=== PATIENT | male | born 1955 | race Caucasian/White ===

== ENCOUNTER → 2019-02-04 10:54 | Outpatient (BNVA) | payer MEDICARE, MEDICAID, SELFPAY | PROVIDERS: PCP Nurse Practitioner Family; Referring Provider Nurse Practitioner Family; Visit Provider Nurse Practitioner Gerontology | DX: N40.1 Benign prostatic hyperplasia with lower urinary tract symptoms (principal); R33.8 Other retention of urine; J44.9 Chronic obstructive pulmonary disease, unspecified; F17.210 Nicotine dependence, cigarettes, uncomplicated; I10 Essential (primary) hypertension | CPT/HCPCS: 51798; 81003; 99204 ==

== ENCOUNTER 2019-02-11 10:10 | Outpatient (CLI) | payer MEDICARE, MEDICAID, SELFPAY | END 2019-02-11 10:30 | PROVIDERS: PCP Nurse Practitioner Family; Visit Provider Urology | DX: Z01.818 Encounter for other preprocedural examination (principal) ==

== ENCOUNTER 2019-02-16 10:20 | Observation (INO) | payer MEDICARE, MEDICAID, SELFPAY ==
[2019-02-11 10:31] VITALS: BP 120/73; PULSE 73; RESP 20; TEMP 37.2; O2SAT 94
[2019-02-16] VITALS (14 sets, daily range): BP systolic 127–200; BP diastolic 53–93; PULSE 60–73; RESP 1–28; TEMP 36–36.7; O2SAT 93–100
[2019-02-16] MEDS: Lactated Ringers 1,000 ML 80 ML IV (11:57)
--- NOTE | 2019-02-16 11:57 | W.PM.HP.N ---
Date of service: 02/16/19 Time of Service: 11:57 Assessment and Plan (1) Lower urinary tract symptoms (LUTS): Current visit: Yes Status: Acute Since he has failed maximal medical therapy, it is reasonable to move ahead with transurethral resection of the prostate. We will expect him to stay overnight for bladder irrigation and be discharged tomorrow with a catheter in place. History of Present Illness Chief Complaint: Lower urinary tract symptoms Narrative: This is a 63-year-old gentleman who was previously under the care of another urologist. This gentleman has been followed for lower urinary tract symptoms. He is on maximum doses of alpha blockers and 5 alpha reductase inhibitors. His symptoms have progressed in spite of the maximal medical therapy. He had discussed transurethral resection with his previous urologist. The patient is interested in moving ahead with the surgery, but the urologist is no longer practicing locally. He presents for transurethral resection of the prostate. He has not gone into retention he has no history of recurrent urinary tract infections. He is on Xarelto chronically, but his anticoagulant was discontinued 3 days ago Review of Systems Constitutional Comments: No fevers or chills No vision change or dysphasia No diabetes or thyroid No shortness of breath, cough or hemoptysis. heavy smoker. No chest pain or palpitations. His last pacemaker check was in january 2019. No nausea, vomiting, hepatitis, ulcers, jaundice, diarrhea or constipation No seizures, strokes or peripheral neuropathy Bruises easily with Xaralto. No anemia No gout. Hx arthralgia and chronic back pain PFSH Medical History Atrial fibrillation (Chronic) BPH (benign prostatic hyperplasia) (Chronic) COPD (chronic obstructive pulmonary disease) (Chronic) Cataract (Chronic) Coronary artery disease (Chronic) GERD (gastroesophageal reflux disease) (Chronic) Hypertension (Chronic) Pacemaker (Chronic) Surgical History H/O shoulder surgery (Chronic) History of cataract surgery (Chronic) History of hernia repair (Chronic) Social History Smoking/Tobacco Use Status: Current every day Drug use: Never Meds Home Medications Medication Instructions Recorded Confirmed Type albuterol sulfate HFA 90 2 puff IH Q6H PRN 02/04/19 02/16/19 History mcg/actuation aerosol inhaler aspirin 325 mg tablet 325 mg PO DAILY 02/04/19 02/16/19 History atorvastatin 80 mg tablet 80 mg PO DAILY 02/04/19 02/16/19 History bupropion HCl XL 150 mg 24 hr 150 mg PO QAM 02/04/19 02/16/19 History tablet, extended release esomeprazole magnesium 40 mg 40 mg PO DAILY cap 02/04/19 02/16/19 History capsule,delayed release ipratropium-albuterol 0.5 mg-3 3 ml IH Q8H 02/04/19 02/16/19 History mg(2.5 mg base)/3 mL nebulization soln metoprolol succinate ER 25 mg 25 mg PO DAILY 02/04/19 02/16/19 History capsule sprinkle, ext. release 24 hr nitroglycerin 0.4 mg sublingual 0.4 mg SL Q5-15M PRN 02/04/19 02/16/19 History tablet pregabalin 100 mg capsule 100 mg PO DAILY cap 02/04/19 02/16/19 History rivaroxaban 20 mg tablet 20 mg PO DAILY 02/04/19 02/16/19 History sucralfate 1 gram tablet 1 gm PO QACHS 02/04/19 02/16/19 History tamsulosin 0.4 mg capsule 0.8 mg PO DAILY cap 02/04/19 02/16/19 History umeclidinium 62.5 mcg-vilanterol 1 inh IH Q24H 02/04/19 02/16/19 History 25 mcg/actuation powdr for inhalation cyclobenzaprine 10 mg PO BID 02/11/19 02/16/19 History finasteride 5 mg PO DAILY 02/11/19 02/16/19 History Allergies Allergy/AdvReac Type Severity Reaction Status Date / Time naproxen Allergy Intermediate Skin Rash Verified 02/16/19 11:30 nicotine Allergy Intermediate Skin Rash Verified 02/16/19 11:30 tetracycline Allergy Verified 02/16/19 11:30 omeprazole [From Prilosec] AdvReac Intermediate vomiting Verified 02/16/19 11:30 Exam Narrative Exam Narrative: He is in no current distress. He is cooperative. His vital signs are documented elsewhere in the chart. His neck is supple. His chest wall motion is normal. His lungs are clear. Cardiac exam shows a regular rate and rhythm. His abdomen is soft with no guarding or rebound tenderness. The kidneys liver and spleen are not enlarged Urologic exam was performed in the office and is documented elsewhere in EMR. There is no edema in the lower extremities. No amputations or deformities are found. He is awake, alert and oriented. Results Last Vital Signs Temp 36.7 C 02/16/19 11:31 Pulse 73 02/16/19 11:31 Resp 20 02/16/19 11:31 BP 131/69 02/16/19 11:31 Pulse Ox 94 L 02/16/19 11:31
--- NOTE | 2019-02-16 13:40 | PROST_PTH ---
PATIENT: Thien Cobos LOC: U#:[id number] AGE/SX: 63/M ROOM: [id number] RE02/16/[address]: Cloten Rice MD : 1955 BED: A DIS: 02/17/2019 SPEC #: [id number] RECD: 02/16/19 15:45 STATUS: SOUT REQ #: [id number] MENA: 02/16/19 13:[address]: Colten Rice DEPT: Surgical Specimen RECD BY: Toyin Travis ENTERED: 02/16/19 15:47 SP TYPE: PROST OTHR DR: Pati Ramirez Tissues: 1 - PROSTATE CURRETTINGS Procedures: GROSS AND MICRO LEVEL 4 Comments: [id number]
[2019-02-16] MEDS: Lidocaine 2% Jelly 6 ML SYR (13:50)
[2019-02-16] MEDS: Ketorolac 15 MG/ML VIAL IVP (14:30)
[2019-02-16] MEDS: fentaNYL 100 MCG/2 ML VIAL IVP ×2 (14:31→14:42)
--- NOTE | 2019-02-16 14:52 | ROE_ITS ---
DATE OF PROCEDURE: February 16, 2019 PREOPERATIVE DIAGNOSIS: Lower urinary tract symptoms. POSTOPERATIVE DIAGNOSIS: Same with pathology pending. PROCEDURE: Cystoscopy; transurethral resection of prostate. SURGEON: Colten Rice M.D. ANESTHESIA: General. COMPLICATIONS: None. ESTIMATED BLOOD LOSS: Less than 100 cc's HISTORY: This is a 63-year-old gentleman who has a long history of lower urinary tract symptoms. He has been treated with maximal medical therapy, but his symptoms progressed. He has not gone into re tention. He has no history of recurrent urinary tract infections. He presents now for transurethral resection of the prostate. OPERATIVE REPORT: The patient was brought to the Operating Room on 02/16/19. After successful induct ion of general anesthesia, he was placed in the dorsal lithotomy position. His genitalia was prepped and draped. 2% Xylocaine jelly was instilled into the urethra to act as a local anesthetic. A 24 Algerian resectoscope sheath was passed through the urethra into the bladder. We used the visual obturator to inspect both the urethra and the prostate. The pendulous and bulbous urethras appeared normal. There was a mild narrowing in the membranous ure thra, but this was easily dilated with the scope. The prostatic urethra showed a relatively short urethra, but there appeared to be nodular enlargement , especially at the bladder neck. This was more prominent on the left side of the prostate compared to the right. The bladder itself showed numerous trabeculations and diverticula. No papillary or nodular tumors we re seen. We then switched to the bipolar resectoscope and performed transurethral resection from the bladder n mariano out to the verumontanum. The depth of the resection was down to the prostatic capsule. All evac uated tissue was sent to Pathology for permanent section. Toward the end of the resection we switched over to the plasma button and vaporized the prostate tiss ue back to the capsule. This allowed for adequate hemostasis. The bladder was then filled with irrigant. The resectoscope was removed. A 24 Algerian Mullen catheter was then passed through the urethra into the bladder. The catheter balloon was inflated with 30 cc' s of sterile water. The catheter was hooked to gravity drainage. Continuous bladder irrigation was begun. Traction was placed on the catheter until the irrigant became clear. The patient tolerated this procedure well with no complications.
[2019-02-16] MEDS: HYDROmorphone 2 MG/ML VIAL IVP ×2 (15:03→15:21)
[2019-02-16] MEDS: Normal Saline Flush 10 ML SYR IV (15:03)
[2019-02-16] MEDS: Lactated Ringers 1,000 ML 75 ML IV (16:20)
[2019-02-16] MEDS: Sucralfate 1 GM TAB PO ×2 (16:20→20:15)
[2019-02-16] MEDS: Albuterol/Ipratropium 3 ML UPD VIAL IH ×2 (16:46→23:56)
--- NOTE | 2019-02-16 18:35 | NUR.NOTE ---
Nursing Note: Patients output into his hill bag, remains a straw color, his pain has been managed since arrival to the floor, He ate well at dinner, he received meatal care prior to dinner as well
[2019-02-16] MEDS: Cyclobenzaprine 10 MG TAB PO (20:15)
[2019-02-16] MEDS: Docusate Sodium 100 MG CAP PO (20:15)
[2019-02-17 00:16] VITALS: PULSE 63; RESP 22; O2SAT 96
[2019-02-17] MEDS: Lactated Ringers 1,000 ML 75 ML IV (04:24)
--- NOTE | 2019-02-17 07:02 | W.PM.PROGNOT ---
Date of Service Date of service: 02/17/19 Time of Service: 07:02 Assessment and Plan (1) Lower urinary tract symptoms (LUTS): Current visit: Yes Status: Acute He is recovering nicely from his procedure. We will discontinue his bladder irrigation and hooked his catheter up to a leg bag. He can be discharged to home and follow-up in about 5 days for catheter removal. We may have his surgical pathology back at that time as well. The patient may need some help in arranging transportation home. Subjective Interval history since last seen: He had a relatively comfortable night. He has no episodes of clot retention. He is tolerating oral intake with no nausea or vomiting. Exam Narrative Exam Narrative: He does not appear septic or toxic. His vital signs are documented elsewhere. His bladder irrigation is crystal clear. He is awake and alert. This morning's lab work is still pending. Objective Objective Clinical Data: Vital Signs Temperature 36.6 C 02/16/19 23:45 Temperature Source Skin 02/16/19 23:45 Pulse 63 02/17/19 00:16 Pulse Rhythm Irregular 02/16/19 23:45 Respiratory Rate 22 02/17/19 00:16 Respiratory Effort 02/16/19 23:45 Respiratory Depth Normal 02/16/19 23:45 Respiratory Pattern Normal 02/16/19 23:45 Blood Pressure 134/65 02/16/19 23:45 Pulse Oximetry 96 02/17/19 00:16 Oxygen Delivery Method Room Air 02/16/19 23:56 Oxygen Flow Rate 0 02/16/19 23:56 Pain Level 0 02/16/19 23:45 Intake & Output 02/16/19 02/16/19 02/17/19 11:59 23:59 11:59 Intake Total 1070 / 1070 1105 / 1105 Balance 1070 / 1070 1105 / 1105 Weight 75.7 kg Intake: IV 950 / 950 865 / 865 Oral 120 / 120 240 / 240 Other: Urine Color Pale Straw Urine Appearance Hematuria Comment patent and flowing with CBI, urine is straw colored Stool Size Small Stool Characteristics Soft Formed Brown Emesis Description None
--- NOTE | 2019-02-17 07:09 | DSE_ITS ---
Date of service: 02/17/19 Time of Service: 07:04 DS: Diagnosis Discharge Diagnosis (1) Lower urinary tract symptoms (LUTS): Status: Acute Discharge Plan Disposition Patient Disposition: HOME Condition: Stable Discharge Details Reason For Visit: BPH WITH LUTS Admit Date/Time: 02/16/19 10:20 Admit Provider: Colten Rice Attending Provider: Colten Rice Primary Care Provider: Pati Ramirez Hospital Course Hospital Course: The patient was brought to the hospital on 02/16/2019. He underwent a transurethral resection of the prostate. He tolerated the surgery well. We arranged for an overnight hospitalization for bladder irrigation to help prevent clots in the urine and urinary retention. By postoperative day #1, the irrigation remained clear. We discontinued the irrigation and left his catheter hooked to a drainage bag. He will be discharged with the catheter in place. He will follow-up in my office in about 5 days for catheter removal. At the time of his discharge, his surgical pathology is not yet available. Home Meds and New Rx's Prescriptions: No Action aspirin 325 mg tablet 325 mg PO DAILY RF: 0 atorvastatin 80 mg tablet 80 mg PO DAILY RF: 0 sucralfate [Carafate] 1 gram tablet 1 gm PO QACHS RF: 0 ipratropium-albuterol 0.5 mg-3 mg(2.5 mg base)/3 mL solution for nebulization 3 ml IH Q8H RF: 0 Lyrica 100 mg capsule 100 mg PO DAILY RF: 0 esomeprazole magnesium [Nexium] 40 mg capsule,delayed release(DR/EC) 40 mg PO DAILY RF: 0 nitroglycerin [Nitrostat] 0.4 mg tablet, sublingual 0.4 mg SL Q5-15M PRNRF: 0 albuterol sulfate [ProAir HFA] 90 mcg/actuation HFA aerosol inhaler 2 puff IH Q6H PRNRF: 0 tamsulosin 0.4 mg capsule 0.8 mg PO DAILY RF: 0 bupropion HCl [Wellbutrin XL] 150 mg tablet extended release 24 hr 150 mg PO QAM RF: 0 Xarelto 20 mg tablet 20 mg PO DAILY RF: 0 metoprolol succinate 25 mg cap,sprinkle,ER 24hr dose pack 25 mg PO DAILY RF: 0 Anoro Ellipta 62.5-25 mcg/actuation blister with device 1 inh IH Q24H RF: 0 cyclobenzaprine 10 mg Tablet 10 mg PO BID RF: 0 finasteride 5 mg Tablet 5 mg PO DAILY RF: 0 Discharge Instructions Additional Instructions: Instruct patient in use of leg bag for Hill catheter He may restart his aspirin but patient should hold his Xarelto until his follow- up visit He will need to follow-up in our office in about 5 days for catheter removal The patient may need assistance in arranging transportation home He may use [id number] Tylenol for discomfort. I will submit a prescription for antibiotics oral toradol to his local pharmacy. Activity:: no lifting over 10 pounds Equipment/Supplies:: hill catheter to leg bag - plug to irrigation port Diet:: As Tolerated Discharge Orders Discharge Orders: Discharge Order (Routine); Ordered 02/17/19 Ordered By: Colten Rice Exam Narrative Exam Narrative: At the time of discharge, the patient looks well. He does not appear septic or toxic His vital signs are documented elsewhere in the chart His lungs are clear with decreased breath sounds bilaterally Cardiac exam shows a regular rate His abdomen is soft. His bladder is not distended. His urine is clear in his catheter drainage bag He is awake and alert. DS: Data Vitals/I&O Vitals and I&O: Vital Signs Temperature 36.6 C 02/16/19 23:45 Temperature Source Skin 02/16/19 23:45 Pulse 63 02/17/19 00:16 Pulse Rhythm Irregular 02/16/19 23:45 Respiratory Rate 22 02/17/19 00:16 Respiratory Effort 02/16/19 23:45 Respiratory Depth Normal 02/16/19 23:45 Respiratory Pattern Normal 02/16/19 23:45 Blood Pressure 134/65 02/16/19 23:45 Pulse Oximetry 96 02/17/19 00:16 Oxygen Delivery Method Room Air 02/16/19 23:56 Oxygen Flow Rate 0 02/16/19 23:56 Pain Level 0 02/16/19 23:45 Intake & Output 02/16/19 02/16/19 02/17/19 11:59 23:59 11:59 Intake Total 1070 / 1070 1105 / 1105 Balance 1070 / 1070 1105 / 1105 Weight 75.7 kg Intake: IV 950 / 950 865 / 865 Oral 120 / 120 240 / 240 Other: Urine Color Pale Straw Urine Appearance Hematuria Comment patent and flowing with CBI, urine is straw colored Stool Size Small Stool Characteristics Soft Formed Brown Emesis Description None Labs on day of discharge: Labs from last 24 hours 02/17/19 02/17/19 05:35 05:35 Hgb Pending Hct Pending Sodium Pending Potassium Pending Chloride Pending Carbon Dioxide Pending Anion Gap Pending BUN Pending Creatinine Pending Estimated GFR/1.73 m2 Pending Glucose Pending Calcium Pending [facility] Medical History Atrial fibrillation (Chronic) BPH (benign prostatic hyperplasia) (Chronic) COPD (chronic obstructive pulmonary disease) (Chronic) Cataract (Chronic) Coronary artery disease (Chronic) GERD (gastroesophageal reflux disease) (Chronic) Hypertension (Chronic) Pacemaker (Chronic) Surgical History H/O shoulder surgery (Chronic) History of cataract surgery (Chronic) History of hernia repair (Chronic) Social History Smoking/Tobacco Use Status: Current every day Drug use: Never
[2019-02-17 07:37] VITALS: BP 115/53; PULSE 65; RESP 28; TEMP 37.2; O2SAT 93
[2019-02-17 07:53] LABS: HCT 41.3 % (40.0-50.0); HGB 13.9 g/dL (13.5-17.5)
[2019-02-17] MEDS: Esomeprazole 40 MG CAPCR PO (07:54)
[2019-02-17] MEDS: Cyclobenzaprine 10 MG TAB PO (07:54)
[2019-02-17] MEDS: buPROPion-XL 150 MG TABCR PO (07:54)
[2019-02-17] MEDS: Metoprolol CR 25 MG TABCR PO (07:54)
[2019-02-17] MEDS: Finasteride 5 MG TAB PO (07:55)
[2019-02-17] MEDS: Sucralfate 1 GM TAB PO (07:55)
[2019-02-17] MEDS: Docusate Sodium 100 MG CAP PO (07:55)
[2019-02-17] MEDS: Pregabalin 100 MG CAP PO (07:55)
[2019-02-17] MEDS: Atorvastatin 40 MG TAB 80 MG PO (07:55)
[2019-02-17] MEDS: Tamsulosin 0.4 MG CAPCR 0.8 MG PO (07:55)
[2019-02-17 08:04] LABS: BUN 11 mg/dL (7-18); CREATININE 0.98 mg/dL (0.70-1.30); Calcium 8.5 mg/dL (8.5-10.1); Chloride 105 mmol/L (98-107); Glucose 118 mg/dL (70-100); Potassium 3.9 mmol/L (3.5-5.1); Sodium 138 mmol/L (136-145)
[2019-02-17] MEDS: Acetaminophen 325 MG TAB 650 MG PO (09:22)
--- NOTE | 2019-02-17 09:36 | PDOC.CMIN ---
Care Management Initial Assess REASON FOR HOSPITALIZATION:: BPH with LUTS PAST MEDICAL HISTORY/PAST SURGICAL HISTORY:: LUTS, Urinary Retention, COPD, CAD, GERD, Hypertension, Pacemaker, BPH, Cataract removal, H/O shoulder surgery, hernia repair, AFIB PREVIOUS FUNCTIONAL STATUS/SOCIAL/FAMILY SUPPORTS:: Thien resides in [place] with his , Irma in [place], [place]. He is independent at baseline and enjoys watching wrestling on T.V. CURRENT FUNCTIONAL STATUS:: Thien was lying in bed when CM met with him. He was pleasant in interaction and shared no concerns at this time. Has patient been provided with information about the portal?: No Did the patient sign up for the portal?: No INSURANCE COVERAGE / FINANCIAL ISSUES:: Medicaid. Medicare CURRENT HOME/COMMUNITY SERVICES/EQUIPMENT:: [facility] PRIMARY CARE PHYSICIAN:: Pati Ramirez POTENTIAL DISCHARGE NEEDS:: Transportation, follow up appointments. PATIENT/FAMILY EDUCATION NEEDS:: Review of discharge instructions, discuss Ask Me Three. ANTICIPATED BARRIERS TO DISCHARGE:: None identified. TRANSPORTATION:: Via [facility], coordinated by this typewriter assembly and parts inspector. PLAN:: Thien will return home when ready per MD. He will follow up with Dr. Rice and his PCP as well as his plan of care as prescribed. He will transport via private vehicle with [facility] coordinated by this typewriter assembly and parts inspector. CM coordinated [facility] transport for 1100, confirmed transport and notified Jazmyne LAMBERT and Mary HUYNH.
[2019-02-17] MEDS: Albuterol/Ipratropium 3 ML UPD VIAL IH (10:16)
--- NOTE | 2019-02-17 11:07 | INITIAL_ITS ---
Care Management Initial Assess REASON FOR HOSPITALIZATION:: BPH with LUTS PAST MEDICAL HISTORY/PAST SURGICAL HISTORY:: LUTS, Urinary Retention, COPD, CAD, GERD, Hypertension, Pacemaker, BPH, Cataract removal, H/O shoulder surgery, hernia repair, AFIB PREVIOUS FUNCTIONAL STATUS/SOCIAL/FAMILY SUPPORTS:: Thien resides in [place] with his , Irma in [place], [place]. He is independent at baseline and enjoys watching wrestling on T.V. CURRENT FUNCTIONAL STATUS:: Thien was lying in bed when CM met with him. He was pleasant in interaction and shared no concerns at this time. Has patient been provided with information about the portal?: No Did the patient sign up for the portal?: No INSURANCE COVERAGE / FINANCIAL ISSUES:: Medicaid. Medicare CURRENT HOME/COMMUNITY SERVICES/EQUIPMENT:: [facility] PRIMARY CARE PHYSICIAN:: Pati Ramirez POTENTIAL DISCHARGE NEEDS:: Transportation, follow up appointments. PATIENT/FAMILY EDUCATION NEEDS:: Review of discharge instructions, discuss Ask Me Three. ANTICIPATED BARRIERS TO DISCHARGE:: None identified. TRANSPORTATION:: Via [facility], coordinated by this television writer. PLAN:: Thien will return home when ready per MD. He will follow up with Dr. Rice and his PCP as well as his plan of care as prescribed. He will transport via private vehicle with [facility] coordinated by this television writer. CM coordinated [facility] transport for 1100, confirmed transport and notified Jazmyne LAMBERT and Mary HUYNH.
--- NOTE | 2019-02-17 11:07 | PDOC.CMDIS ---
LACE Index Scoring Tool - Questions: Length of Stay (in days): 1 Acuity (Admit via E.D.?): No Comorbidities: Chronic Pulmonary Disease E.D. Visits: 0 - Answers: Total Score: 3 Risk of Readmission: Low Risk Care Management Discharge Reason for Hospitalization: BPH with LUTS Discharge Plan: Thien will return home when ready per MD. He will follow up with Dr. Rice for voiding trial 02/23/19, his PCP as well as his plan of care as prescribed. He will transport via private vehicle with [facility] coordinated by this scenario writer. CM coordinated [facility] transport for 1100, confirmed transport and notified Jazmyne HUYNHCC and Mary HUYNH. Patient/Family Education Needs: Review of discharge instructions, discuss Ask Me Three. Services Needed at Discharge: Transportation ([facility] Private Binder[employer] Machine Feeder Offbearer )
== END 2019-02-17 10:59 | disposition home or self-care (01) ==
LOC: PDS 14:19 → MS 15:12 → PDS 16:18
PROVIDERS: Admitting Provider Urology; PCP Nurse Practitioner Family; Visit Provider Urology
PROC: 0VT08ZZ Resection of Prostate, Via Natural or Artificial Opening Endoscopic (ICD-10-PCS; CPT 52601; principal; 2019-02-16 12:30)
DX: N40.0 Benign prostatic hyperplasia without lower urinary tract symptoms (principal); R33.8 Other retention of urine; N41.0 Acute prostatitis; N41.1 Chronic prostatitis; J44.9 Chronic obstructive pulmonary disease, unspecified; I10 Essential (primary) hypertension; Z95.0 Presence of cardiac pacemaker; F17.210 Nicotine dependence, cigarettes, uncomplicated
CPT/HCPCS: 52601; 36415; 80048; 88305; 99225; NC; 85014; 85018; 94640; G0378; J0690; J1100; J1885; J2405; J3010; J7620

== ENCOUNTER → 2019-02-23 07:50 | Outpatient (BNVA) | payer MEDICARE, MEDICAID, SELFPAY | PROVIDERS: PCP Nurse Practitioner Family; Visit Provider Urology | DX: Z48.816 Encounter for surgical aftercare following surgery on the genitourinary system (principal); R39.9 Unspecified symptoms and signs involving the genitourinary system ==

== ENCOUNTER → 2019-03-10 08:11 | Outpatient (BNVA) | payer MEDICARE, MEDICAID, SELFPAY | PROVIDERS: PCP Nurse Practitioner Family; Visit Provider Urology | DX: Z48.816 Encounter for surgical aftercare following surgery on the genitourinary system (principal); N40.1 Benign prostatic hyperplasia with lower urinary tract symptoms; R33.8 Other retention of urine | CPT/HCPCS: 51798 ==

== ENCOUNTER → 2020-09-07 12:44 | Outpatient (BNVA) | payer MEDICARE, MEDICAID, SELFPAY | PROVIDERS: PCP Nurse Practitioner Family; Referring Provider Nurse Practitioner Family; Visit Provider Internal Medicine Cardiovascular Disease | DX: I48.91 Unspecified atrial fibrillation (principal); Z45.018 Encounter for adjustment and management of other part of cardiac pacemaker; J44.9 Chronic obstructive pulmonary disease, unspecified; I10 Essential (primary) hypertension | CPT/HCPCS: 93279; 99212 ==

== ENCOUNTER → 2021-04-05 09:11 | Outpatient (BNVA) | payer MEDICARE, MEDICAID, SELFPAY | PROVIDERS: PCP Nurse Practitioner Family; Referring Provider Nurse Practitioner Family; Visit Provider Internal Medicine Cardiovascular Disease | DX: I48.91 Unspecified atrial fibrillation (principal); Z45.018 Encounter for adjustment and management of other part of cardiac pacemaker | CPT/HCPCS: 93280; 99212 ==

== ENCOUNTER → 2022-08-08 11:35 | Outpatient (BNVA) | payer MEDICARE, MEDICAID, SELFPAY | PROVIDERS: PCP Nurse Practitioner Family; Referring Provider Nurse Practitioner Family; Visit Provider Internal Medicine Cardiovascular Disease | DX: Z95.0 Presence of cardiac pacemaker (principal) | CPT/HCPCS: 93280 ==

== ENCOUNTER → 2023-08-07 11:05 | Outpatient (BNVA) | payer MEDICARE, MEDICAID, SELFPAY | PROVIDERS: Visit Provider Internal Medicine Cardiovascular Disease | DX: Z95.0 Presence of cardiac pacemaker (principal) | CPT/HCPCS: 93280 ==

== ENCOUNTER 2024-08-05 10:01 | Outpatient (CLI) | payer MEDICARE, MEDICAID, SELFPAY | END 2024-08-05 10:02 | disposition home or self-care (01) | LOC: DI.CARD 10:02 | PROVIDERS: Visit Provider Internal Medicine Cardiovascular Disease | CPT/HCPCS: 93010 ==

== ENCOUNTER 2025-02-03 08:57 | Outpatient (CLI) | payer MEDICARE, MEDICAID, SELFPAY ==
--- NOTE | 2025-02-03 08:45 | RT.EKG_ITS ---
APPROVED REPORT Exam: Resting ECG Reason for Exam: CAD, afib Patient Location: O HR:66 bpm ECG Measurements Heart Rate 66 AXIS CO 141 P 86 QRSd 74 QRS 72 QT 369 T 80 QTc 387 Conclusion Sinus rhythm...normal P axis, V-rate 50- 99 Normal Electrocardiogram
== END 2025-02-03 08:58 | disposition home or self-care (01) ==
LOC: DI.CARD 08:57
PROVIDERS: Visit Provider Internal Medicine Cardiovascular Disease
DX: I25.10 Atherosclerotic heart disease of native coronary artery without angina pectoris (principal)
CPT/HCPCS: 93010

== ENCOUNTER → 2025-02-03 10:30 | Outpatient (BNVA) | payer MEDICARE, MEDICAID, SELFPAY | PROVIDERS: Visit Provider Internal Medicine Cardiovascular Disease | DX: Z95.810 Presence of automatic (implantable) cardiac defibrillator (principal); I48.91 Unspecified atrial fibrillation | CPT/HCPCS: 93005; 93280 ==

== ENCOUNTER 2025-02-03 11:25 | Outpatient (CLI) | payer MEDICARE, MEDICAID, SELFPAY ==
[2025-02-03 12:20] LABS: Anion Gap 6.1 mmol/L (3-11); BUN 17 mg/dL (7-18); CO2 29.9 mmol/L (21.0-32.0); CREATININE 1.2 mg/dL (0.70-1.30); Calcium 9.4 mg/dL (8.5-10.1); Chloride 107 mmol/L (98-107); Estimated GFR 65.06 (mL/min/1.73m2); Glucose 99 mg/dL (74-106); Potassium 4.3 mmol/L (3.5-5.1); Sodium 143 mmol/L (136-145)
== END 2025-02-03 11:26 | disposition home or self-care (01) ==
LOC: LBO 11:26
PROVIDERS: Visit Provider Internal Medicine Cardiovascular Disease
DX: I25.10 Atherosclerotic heart disease of native coronary artery without angina pectoris (principal); I10 Essential (primary) hypertension; N18.9 Chronic kidney disease, unspecified; I48.91 Unspecified atrial fibrillation
CPT/HCPCS: 36415; 80048; 93005; 93280

== ENCOUNTER → 2025-07-29 12:33 | Outpatient (BNVA) | payer MEDICARE, MEDICAID, SELFPAY | PROVIDERS: PCP Family Medicine; Referring Provider Family Medicine; Visit Provider Internal Medicine Pulmonary Disease | DX: J43.9 Emphysema, unspecified (principal); R05.9 Cough, unspecified; F17.210 Nicotine dependence, cigarettes, uncomplicated | CPT/HCPCS: 99215; 99406 ==

== ENCOUNTER 2025-08-18 01:46 | Outpatient (CLI) | payer MEDICARE, MEDICAID, SELFPAY ==
[2025-08-18] MEDS: Inhaler, Assist Device 1 EACH MC (11:49)
[2025-08-18] MEDS: Levalbuterol HFA 15 GM INH 4 PUFF IH (11:51)
--- NOTE | 2025-08-19 10:09 | W.PFT ---
Date of service: 08/18/25 Time of Service: 09:40 Pulmonary Function Test Result Indications: Emphysema Impression 1. Good patient effort was noted. ATS standards for reproducibility were met. 2. Spirometry showed severe obstructive lung disease with an FEV1 of 44% (1.44 L). FEV1 improved to 1.67 L post bronchodilator 3. Following the administration of a bronchodilator there was was a significant response 4. TLC and RV were elevated, consistent with air trapping 5. DLCO was 59%, consistent with a moderate defect in alveolar gas exchange
== END 2025-08-18 01:47 | disposition home or self-care (01) ==
LOC: RT 01:47
PROVIDERS: PCP Family Medicine; Visit Provider Internal Medicine Pulmonary Disease
DX: J44.89 Other specified chronic obstructive pulmonary disease (principal)
CPT/HCPCS: 94060; 94726; 94729